=== PATIENT | male | born 1995 | race Caucasian/White ===

== ENCOUNTER 2020-02-05 23:21 | Emergency (ER) | payer OTHER ==
[~2020-02-05] VITALS: Ht 190.5 cm; Wt 95.0 kg
[~2020-02-05 23:21] MED LIST: NO HOME MEDICATIONS; NORCO 325 MG-51 TAB PO
[2020-02-05 23:24] VITALS: TEMP 97.9
[2020-02-06 00:59] VITALS: BP 138/84; PULSE 74
== END 2020-02-06 00:59 | disposition home or self-care (01) ==
LOC: COL.ER 23:21
DX: M94.0 Chondrocostal junction syndrome [Tietze] (principal); F17.210 Nicotine dependence, cigarettes, uncomplicated; Z90.49 Acquired absence of other specified parts of digestive tract